=== PATIENT | female | born 1975 | race Caucasian/White ===

== ENCOUNTER → 2020-09-01 | Outpatient (CLI) | payer BC ==
--- NOTE | 2020-09-01 12:16 | MR ---
EXAMINATION TYPE: MR knee RT wo con DATE OF EXAM: 09/01/2020 COMPARISON: X-ray 08/10/2020 HISTORY: Pain in right knee TECHNIQUE: Multiplanar, multisequence imaging of the right knee is performed without IV contrast. FINDINGS: There is a 1.1 x 2.5 x 3.7 cm popliteal fossa cyst with indistinct margins and septation ma y represent a component of ruptured popliteal fossa cyst. Anterior cruciate and posterior cruciate ligaments have a normal appearance. Medial collateral latera l collateral ligaments have a normal appearance. 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 Linear intrasubstan ce signal seen in the posterior horn with no definite articular extension. Myxoid degeneration favore d over subtle tear. Patellar and quadriceps tendons are intact. There is a trace amount of fluid in the suprapatellar bur sa. There is fibrillation of the patellar cartilage. There is marrow edema involving the posterior margin of the tibia measuring approximately 1.5 cm. Rou nded cystic area noted near the articular surface.. IMPRESSION: 1. No evidence of ligamentous tear. There is a area of marrow edema involving the posterior medial ti kusum. This could represent a bone contusion. Osteochondritis in the differential diagnosis. Well-circu mscribed 5 mm cystic change near the articular surface likely benign. 2. 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 Intrasubstance signal in the posterior horn of the medial meniscus for which myxoid degenerati on favored over subtle tear. 3. Popliteal fossa cyst measuring 1.1 x 2.5 x 3.7 cm
== END | disposition home or self-care (01) ==
LOC: RADMRIMAIN 11:28
PROVIDERS: ATTEND Orthopaedic Surgery
DX: M71.21 Synovial cyst of popliteal space [Baker], right knee (principal); M94.261 Chondromalacia, right knee; S83.241A Other tear of medial meniscus, current injury, right knee, initial encounter; R93.7 Abnormal findings on diagnostic imaging of other parts of musculoskeletal system

== ENCOUNTER → 2024-04-03 | Outpatient (CLI) | payer OTHER ==
[2024-04-03 11:06] VITALS: BP 119/76; PULSE 84; RESP 16; TEMP 98.2
--- NOTE | 2024-04-03 11:51 | P.PROGSL ---
Subjective DATE: 04/03/2024 CONSULTATION/NEW PATIENT EVALUATION HISTORY OF PRESENT ILLNESS/SLEEP-WAKE EVALUATION: 49-year-old lady had been evaluated in the sleep center for possible obstructive sleep apnea hypopnea syndrome. SLEEP SCHEDULE: Usually sleep schedule from 111 AM until 6:30 AM on weekdays and from 121 AM until 7:30 on weekend. FALLING ASLEEP: Patient does have difficulties with falling asleep. DURING SLEEP: Patient has loud snoring, witnessed episodes of stop breathing during the sleep, episodes of choking and gasping for air. Patient wakes up from sleep once with nocturia. No history of hypnogogical hallucinations, sleep paralysis, or cataplexy. DURING THE DAY/WAKE STATE: In the morning patient wake up tired, has difficulties to pay attention and has problems with concentration.. Pierce sleepiness scale is significantly increased to 14. Usually patient does not take naps. PAST MEDICAL HISTORY: Mitral valve prolapse, acid reflux. PAST SURGICAL HISTORY: Tonsillectomy. MEDICATIONS: None at the present time. SOCIAL HISTORY: Please see below. FAMILY HISTORY: Hypertension, stroke, sleep apnea, diabetes. REVIEW OF SYSTEMS: Snoring, sleepiness during the day. No fevers. No double vision. No recent chest pain. No shortness of breath. No abdominal pain. No bleeding episodes. No blood in urine. No seizure episodes. PHYSICAL EXAMINATION: GENERAL: A pleasant patient without any distress. VITAL SIGNS: Please see below, weight 164 pounds, BMI 26.4. HEENT: PERRLA, EOMI. Evaluation of oropharynx showed tongue protrudes midline, low position of soft palate Mallampati 4. NECK: Supple. No JVD. Thyroid is not palpable. 15 inches in circumference. LUNGS: Clear to percussion and to auscultation. Good air exchange. No wheezing or rhonchi. HEART: S1, S2 regular. No murmurs, gallops or rubs. ABDOMEN: Soft and nontender. Bowel sounds are present. No organomegaly appreciated. EXTREMITIES: No clubbing or cyanosis. FARM MANAGER: Awake, alert, and oriented x3. Cranial nerves 2 to 7 intact. There is no fasciculation or atrophy noted. No focal deficits observed. ASSESSMENT: 1. Loud snoring, witnessed episodes of stop breathing during the sleep, extremely low position of soft palate Mallampati 4, sleepiness during the day with Pierce Sleepiness Scale 14. Obstructive sleep apnea hypopnea syndrome. 2. History of mitral valve prolapse. 3. History of acid reflux. 4. Status post tonsillectomy. PLAN: 1. Polysomnography for evaluation of patient's breathing during sleep. 2. Following plan after reading sleep study. 3. Preferable position during sleep on the side. 4. No driving if patient feels any sleepiness. Patient is aware of civil and criminal liability for unsafe driving. 5. Sleep hygiene with regular sleep time for at least 7.5-8 hours. 6. Watching weight. Thank you very much for referring this patient for consultation. Sincerely, Paras Meeks MD, PhD, FAASM. Diplomat of [place] [employer], Sleep Medicine Board by [place] [employer] [place] [employer] Division [employer] [facility] [place] Objective - Vital Signs Vital Signs: Vital Signs Temp 98.2 F 04/03/24 11:04 Pulse 84 04/03/24 11:04 Resp 16 04/03/24 11:04 BP 119/76 04/03/24 11:04 Pulse Ox 97 04/03/24 11:04 FiO2 Intake & Output 04/02/24 04/03/24 04/03/24 18:59 06:59 18:59 Weight 74.389 kg
== END ==
LOC: 3 N SLEEP 10:39
PROVIDERS: ATTEND Internal Medicine
DX: G47.33 Obstructive sleep apnea (adult) (pediatric) (principal); Z87.19 Personal history of other diseases of the digestive system; Z90.89 Acquired absence of other organs; Z86.79 Personal history of other diseases of the circulatory system
CPT/HCPCS: 99202